=== PATIENT | male | born 1965 | race Caucasian/White ===

== ENCOUNTER 2020-08-25 13:45 | Emergency (ER) | payer OTHER ==
[~2020-08-25] VITALS: Ht 175.3 cm; Wt 92.1 kg
[~2020-08-25 13:45] MED LIST: COL100 PO; FOL1 PO; KLOR-CON M1010 MEQ PO; LAC30L PO; LASIX20 MG PO; LEVAQUIN750 MG PO; THI100 PO; XIFAXAN550 M1 PO
[2020-08-25 15:12] VITALS: BP 130/92; Ht 175.3 cm; Wt 92.1 kg
== END 2020-08-25 18:07 | disposition home or self-care (01) ==
LOC: ED 13:45
DX: S01.01XA Laceration without foreign body of scalp, initial encounter (principal); W18.30XA Fall on same level, unspecified, initial encounter; Y93.89 Activity, other specified; Y92.89 Other specified places as the place of occurrence of the external cause; Y99.8 Other external cause status

== ENCOUNTER 2020-09-29 18:17 | Emergency (ER) | payer OTHER ==
[~2020-09-29] VITALS: Ht 175.3 cm; Wt 98.9 kg
[2020-09-29 18:28] VITALS: BP 106/76; Ht 175.3 cm; Wt 98.9 kg
== END 2020-09-29 18:40 | disposition home or self-care (01) ==
LOC: ED 18:17
DX: S01.01XD Laceration without foreign body of scalp, subsequent encounter (principal); W18.30XD Fall on same level, unspecified, subsequent encounter